=== PATIENT | female | born 1965 | race Caucasian/White ===

== ENCOUNTER 2018-05-09 11:22 | Emergency (ER) | payer BC ==
--- NOTE | 2018-05-09 11:41 | EDM.PDOC ---
ED HPI GENERAL MEDICAL PROBLEM - General Chief Complaint: Skin Complaint Stated Complaint: COLD SORE Time Seen by Provider: 05/09/18 11:31 Source of Information: Reports: Patient History Limitations: Reports: No Limitations - History of Present Illness INITIAL COMMENTS - FREE TEXT/NARRATIVE: HISTORY AND PHYSICAL: History of present illness: Patient is a 52-year-old female who presents to the emergency room with complaints of a cold sore to the upper left lip. She states she does routinely get cold sores and will get oral antivirals to help shorten the duration. She states if it is left untreated they do get very painful and large. She denies any fever, chills, chest pain, shortness of breath or cough. Denies any GI or symptoms. She has been able to eat and drink appropriately. Has no other concerns with today's visit. Review of systems: As per history of present illness and below otherwise all systems reviewed and negative. Past medical history: As per history of present illness and as reviewed below otherwise noncontributory. Surgical history: As per history of present illness and as reviewed below otherwise noncontributory. Social history: See social history for further information Family history: As per history of present illness and as reviewed below otherwise noncontributory. Physical exam: General: Well-developed and well-nourished 52-year-old female. Alert and oriented. Nontoxic appearing and in no acute distress. HEENT: Atraumatic, normocephalic, pupils equal and reactive bilaterally, negative for conjunctival pallor or scleral icterus, mucous membranes moist, TMs normal bilaterally, throat clear, neck supple, nontender, trachea midline. No drooling or trismus noted. No meningeal signs. No hot potato voice noted. Lungs: Clear to auscultation, breath sounds equal bilaterally, chest nontender. Heart: S1S2, regular rate and rhythm without overt murmur Abdomen: Soft, nondistended, nontender. Negative for masses or hepatosplenomegaly. Negative for costovertebral tenderness. Pelvis: Stable nontender. Genitourinary: Deferred. Rectal: Deferred. Skin: Small blisterlike lesion to the left upper mid lip. Otherwise skin is intact, warm, dry. No lesions or rashes noted. Extremities: Atraumatic, negative for cords or calf pain. Neurovascular unremarkable. Neuro: Awake, alert, oriented. Cranial nerves II through XII unremarkable. Cerebellum unremarkable. Motor and sensory unremarkable throughout. Exam nonfocal. Diagnostics: None Therapeutics: None Prescription: Aacyclovir Impression: Herpes simplex, oral Plan: 1. You may use [id number] Abreva for topical relief. Take your oral medication as prescribed. 2. Please follow-up with your primary caregiver in the next 1-2 days. Return to the ED as needed and as discussed. Definitive disposition and diagnosis as appropriate pending reevaluation and review of above. - Related Data Allergies Allergy/AdvReac Type Severity Reaction Status Date / Time No Known Allergies Allergy Verified 05/09/18 11:32 Home Meds: Home Meds Acyclovir 400 mg PO TID 5 Days #15 tablet 05/09/18 [Rx] Past Medical History - Past Health History Medical/Surgical History: Denies Medical/Surgical History QUALITY REP History: Reports: Endometrial Ablation Social & Family History - Family History Family Medical History: Noncontributory - Tobacco Use Smoking Status *Q: Never Smoker - Recreational Drug Use Recreational Drug Use: No ED ROS GENERAL - Review of Systems Review Of Systems: ROS reveals no pertinent complaints other than HPI. ED EXAM, SKIN/RASH Exam: See Below (See dictation) Course - Vital Signs Last Recorded V/S: Last Vital Signs Temp 96.4 F 05/09/18 11:31 Pulse 85 05/09/18 11:31 Resp 18 05/09/18 11:31 BP 142/83 H 05/09/18 11:31 Pulse Ox 97 05/09/18 11:31 Departure - Departure Time of Disposition: 11:41 Disposition: Home, Self-Care 01 Clinical Impression: Cold sore - Discharge Information Prescriptions: Acyclovir 400 mg PO TID 5 Days #15 tablet Instructions: Cold Sore, [id number] Referrals: PCP,None [Primary Care Provider] - Forms: ED Department Discharge Additional Instructions: The following information is given to patients seen in the emergency department who are being discharged to home. This information is to outline your options for follow-up care. We provide all patients seen in our emergency department with a follow-up referral. The need for follow-up, as well as the timing and circumstances, are variable depending upon the specifics of your emergency department visit. If you don't have a primary care physician on staff, we will provide you with a referral. We always advise you to contact your personal physician following an emergency department visit to inform them of the circumstance of the visit and for follow-up with them and/or the need for any referrals to a consulting specialist. The emergency department will also refer you to a specialist when appropriate. This referral assures that you have the opportunity for follow-up care with a specialist. All of these measure are taken in an effort to provide you with optimal care, which includes your follow-up. Under all circumstances we always encourage you to contact your private physician who remains a resource for coordinating your care. When calling for follow-up care, please make the office aware that this follow-up is from your recent emergency room visit. If for any reason you are refused follow-up, please contact the [facility] Emergency Department at and asked to speak to the emergency department charge nurse. [facility] [address] [place] [id number] [address] 1. You may use [id number] Abreva for topical relief. Take your oral medication as prescribed. 2. Please follow-up with your primary caregiver in the next 1-2 days. Return to the ED as needed and as discussed.
== END 2018-05-09 12:09 | disposition home or self-care (01) ==
LOC: MW.ED 11:22
DX: B00.9 Herpesviral infection, unspecified (principal)
CPT/HCPCS: 99282

== ENCOUNTER 2020-07-30 08:37 | Emergency (ER) | payer BC ==
--- NOTE | 2020-07-30 09:02 | EDM.PDOC ---
ED HPI GENERAL MEDICAL PROBLEM - General Chief Complaint: General Stated Complaint: COLD SORE Time Seen by Provider: 07/30/20 08:40 Source of Information: Reports: Patient History Limitations: Reports: No Limitations - History of Present Illness INITIAL COMMENTS - FREE TEXT/NARRATIVE: Patient is a 54-year-old female who presents today for cold sore to the left upper lip. Patient states that she normally takes acyclovir when she gets these. Symptoms started a few days ago. Patient has no other complaints shortness of breath fever chills nausea vomiting. 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: Endometrial Ablation - Infectious Disease History Infectious Disease History: Reports: Chicken Pox - Past Surgical History Female Surgical History: Reports: Endometrial Ablation Social & Family History - Family History Family Medical History: No Pertinent Family History - Tobacco Use Tobacco Use Status *Q: Former Tobacco User Used Tobacco, but Quit: Yes Month/Year Tobacco Last Used: 2004 - Caffeine Use Caffeine Use: Reports: Coffee, Soda - Recreational Drug Use Recreational Drug Use: No ED ROS GENERAL - Review of Systems Review Of Systems: See Below Constitutional: Reports: No Symptoms HEENT: Reports: Other (sore to upper left lip) Respiratory: Reports: No Symptoms Cardiovascular: Reports: No Symptoms Endocrine: Reports: No Symptoms GI/Abdominal: Reports: No Symptoms : Reports: No Symptoms Musculoskeletal: Reports: No Symptoms Skin: Reports: No Symptoms Neurological: Reports: No Symptoms Psychiatric: Reports: No Symptoms Hematologic/Lymphatic: Reports: No Symptoms Immunologic: Reports: No Symptoms ED EXAM, GENERAL - Physical Exam Exam: See Below Exam Limited By: No Limitations General Appearance: Alert, WD/WN Throat/Mouth: No: Normal Lips (small sore to left upper lip) Head: Atraumatic Respiratory/Chest: No Respiratory Distress Neurological: Alert, Oriented, Normal Cognition, Normal Gait Course - Vital Signs Last Recorded V/S: Last Vital Signs Temp 96.9 F 07/30/20 08:45 Pulse 86 07/30/20 08:45 Resp 18 04/25/21 08:45 BP 142/82 H 04/25/21 08:45 Pulse Ox 96 07/30/20 08:45 Departure - Departure Time of Disposition: 09:04 Disposition: Home, Self-Care 01 Condition: Good Clinical Impression: HSV-1 (herpes simplex virus 1) infection - Discharge Information *PRESCRIPTION DRUG MONITORING PROGRAM REVIEWED*: Not Applicable *COPY OF PRESCRIPTION DRUG MONITORING REPORT IN PATIENT KALIN: Not Applicable Prescriptions: Acyclovir 400 mg PO TID 5 Days #15 tablet Instructions: Herpetic Loretta Referrals: PCP,None [Primary Care Provider] - Forms: ED Department Discharge Additional Instructions: The following information is given to patients seen in the emergency department who are being discharged to home. This information is to outline your options for follow-up care. We provide all patients seen in our emergency department with a follow-up referral. The need for follow-up, as well as the timing and circumstances, are variable depending upon the specifics of your emergency department visit. If you don't have a primary care physician on staff, we will provide you with a referral. We always advise you to contact your personal physician following an emergency department visit to inform them of the circumstance of the visit and for follow-up with them and/or the need for any referrals to a consulting specialist. The emergency department will also refer you to a specialist when appropriate. This referral assures that you have the opportunity for follow-up care with a specialist. All of these measure are taken in an effort to provide you with optimal care, which includes your follow-up. Under all circumstances we always encourage you to contact your private physician who remains a resource for coordinating your care. When calling for follow-up care, please make the office aware that this follow-up is from your recent emergency room visit. If for any reason you are refused follow-up, please contact the [facility] Emergency Department at and asked to speak to the emergency department charge nurse. Please follow up with your primary care physician. If you do not have a primary care physician, see below: [facility] [address] [place] [id number] [facility] [address] [place] [address] You were seen today for possible early cold sore. We will prescribe you antiviral medication. If you have any increased pain spreading of the sore or other questions please feel free to call us or return to the ER. Sepsis Event Note (ED) - Evaluation Sepsis Screening Result: No Definite Risk - Focused Exam Vital Signs: Vital Signs Temp Pulse Resp BP Pulse Ox 07/30/20 08:45 96.9 F 86 18 142/82 H 96 - Assessment/Plan Plan: Patient is a 54-year-old female presents today with looks like a cold sore. Patient has been on acyclovir in the past will be start patient on acyclovir for 5 days.
== END 2020-07-30 09:13 | disposition home or self-care (01) ==
LOC: MW.ED 08:37
DX: B00.1 Herpesviral vesicular dermatitis (principal); Z87.891 Personal history of nicotine dependence
CPT/HCPCS: 99282

== ENCOUNTER 2020-11-11 21:02 | Emergency (ER) | payer BC ==
[2020-11-11 22:57] LABS: BLOOD UREA NITROGEN,BUN 14 mg/dL (7.0-18.0); CARBON DIOXIDE,CO2 21.8 mmol/L (21.0-32.0); CHLORIDE,CL 104 mmol/L (98-107); GLUCOSE RANDOM 109 mg/dL (74-106); POTASSIUM,K 3.9 mmol/L (3.5-5.1); SODIUM,NA 138 mmol/L (136-145)
[2020-11-11] MEDS ORDERED: Iopamidol 755 Mg/ML 100 ML Bottle IVPUSH ONE (23:37)
--- NOTE | 2020-11-12 01:00 | CT ---
INDICATION: Left lower quadrant pain with rectal bleeding. COMPARISON: None available TECHNIQUE: CT examination of the abdomen and pelvis was performed with the uneventful intravenous administration of 100 cc of Isovue 370 while 2.5 mm thick axial sections were obtained from the lung bases through the pubic symphysis. Oral contrast was not administered. Please note that all CT scans at this facility use dose modulation, iterative reconstruction, and/or weight-based dosing when appropriate to reduce radiation dose to as low as reasonably achievable. FINDINGS: There is moderate mucosal thickening of the descending colon extending through the superior sigmoid colon, findings of a moderate, nonspecific colitis. There is no sign of diverticulosis to suggest diverticulitis. The distal sigmoid colon and rectum are normal in appearance. In the abdomen, the liver, spleen, pancreas, and adrenals are normal in appearance. There is a 7 millimeter cyst in the interpolar right kidney of no clinical concern. The kidneys are otherwise normal in appearance. The gallbladder is normal in appearance. The abdominal aorta is normal in caliber with no sign of dilatation. There is no sign of retroperitoneal mass or adenopathy. The stomach, loops of small bowel, and right colon in the abdomen are normal in appearance. In the pelvis, the appendix is normal in appearance with no sign of inflammatory process. The loops of small bowel in the pelvis are normal in appearance. The uterus and adnexal regions are normal in appearance. The urinary bladder is normal in appearance. There is no sign of pelvic or inguinal mass or adenopathy. There is no sign of free air or free fluid in the abdomen or pelvis. The lung bases are clear. The osseous structures are normal in appearance for the patient`s age. IMPRESSION: Moderate nonspecific colitis of the descending colon and proximal sigmoid colon. CT of the abdomen shows no additional abnormality. CT of the pelvis shows no additional abnormality. Please note that all CT scans at this facility use dose modulation, iterative reconstruction, and/or weight-based dosing when appropriate to reduce radiation dose to as low as reasonably achievable. Dictated by Luis Cisse MD @ 11/12/2020 12:58:[address] Luis Cisse @ Nov 12 2020 12:58AM
--- NOTE | 2020-11-12 01:19 | EDM.PDOC ---
ED HPI GENERAL MEDICAL PROBLEM - General Chief Complaint: Abdominal Pain Stated Complaint: BLOOD IN STOOL Time Seen by Provider: 11/11/20 21:38 - History of Present Illness INITIAL COMMENTS - FREE TEXT/NARRATIVE: CHIEF COMPLAINT(S): Abdominal pain HISTORY OF PRESENT ILLNESS: This is a 54-year-old woman without any significant past medical history who comes to the emergency department with a chief complaint of abdominal pain. Patient states that starting today she started to experience abdominal pain in her lower abdominal area on the left side which she rates as 6 out of 10 and intermittent. She describes it as achy. She states that she had some pyelomode and then developed some diarrhea earlier last night and then at 2 PM today she started to know this some blood in her stool. She describes the pain as bright red blood. She described it as a splotch on the bottom of the toilet. She denies any vomiting, nausea, headache, chest pain, fever or chills. She states that she is possibly lactose intolerant but has never had bright red blood per stool. She never has had a colonoscopy. There are no aggravating or relieving factors. She has not yet tried anything for the pain or the abdominal pain or the diarrhea. She states the diarrhea has improved. REVIEW OF SYSTEMS: Constitutional: Denies fever, chills. Eyes: Denies eye pain Ears, Nose, Mouth, & Throat: Denies earache Cardiovascular: Denies chest pain Respiratory: Denies shortness of breath Gastrointestinal: Positive for lower abdominal pain, diarrhea, bloody stool. Denies melena, hematemesis, bilious emesis Genitourinary: Denies hematuria, dysuria vaginal bleeding, vaginal discharge Skin:Denies a rash MSK: Denies joint pain Neurological: Denies blurred vision Psychiatric: Denies depression PAST MEDICAL HISTORY: As per history of present illness and as reviewed below otherwise noncontributory. SURGICAL HISTORY: As per history of present illness and as reviewed below otherwise noncontributory. SOCIAL HISTORY: As per history of present illness and as reviewed below otherwise noncontributory. FAMILY HISTORY: As per history of present illness and as reviewed below otherwise noncontributory. EXAMINATION OF ORGAN SYSTEMS/BODY AREAS: Constitutional: Blood pressure is 135/76, heart rate 76, respiratory rate 17 with an oxygen saturation 98% on room air. Temperature 35.5 temporally General: Well-appearing woman who is in no acute distress Psychiatric: Appropriate mood and affect. Eyes: No scleral icterus or conjunctival erythema ENMT: Moist mucous membranes. No pharyngeal erythema Cardiovascular: Regular, rate, and rhythm. No gallops, murmurs, or rubs. Bilateral upper extremity pulses symmetric and intact. No peripheral edema. No JVD. Respiratory: Lungs clear to auscultation bilaterally. No wheezes, rales, or rh onchi. Gastrointestinal: Soft, nondistended, tenderness to palpation in the left lower quadrant. No rebound or guarding. Negative Howard's and McBurney's. Rectal examination was performed with RN senior account director in presence. There is no evidence of any external hemorrhoids. There was no pain on rectal examination. There was red blood on my glove but not stool. Guaiac was positive. Normoactive jason wel sounds Genitourinary: No suprapubic tenderness Musculoskeletal: Normal range of motion. Skin: No lesions or abrasions. Neurological: Alert, GCS 15 MEDICAL DECISION MAKING AND COURSE IN THE ED WITH INTERPRETATION/REVIEW OF DIAGNOSTIC STUDIES: This is a 54-year-old woman without any significant past medical history who comes to the emergency department with acute left lower quadrant abdominal pain associated with diarrhea and bloody bowel movement who has normal vital signs. At this time differential includes colitis, diverticulitis, colorectal mass, internal hemorrhoids. We will obtain CBC, CMP, coags. We will obtain a CT abdomen pelvis with contrast for further evaluation. The patient currently states that her pain is well controlled and does not want any pain medication therefore we will reevaluate. Laboratory analysis reveals a CBC revealing leukocytosis of 14.30 with normal hemoglobin at 15.4 and hematocrit of 43.0. Coag is within normal limits. CMP is also within normal limits. Lactic acid is 1.7. The radiological images were viewed by myself along with reading the report from the radiologist. CT abdomen and pelvis with contrast reveals moderate mucosal thickening of the descending colon extending through the superior sigmoid colon findings are suggestive of nonspecific colitis. No evidence of diverticulitis. After imaging the patient continued to remain stable in the emergency department. She did not have any episodes of diarrhea. I did discuss the results with the patient. I discussed that if she had worsening diarrhea that we would like to obtain a sample so that we can send it for infectious diarrhea. I discussed that at this time she should continue with a light diet and follow- up with her primary care physician. She is to get a colonoscopy as she is due for this. She is to return for any new or worsening symptoms. She was amenable discharge and had no further questions. DISPOSITION: The patient was discharged home in stable condition. The patient will follow up with primary care physician in 1 to 3 days CONDITION: Fair PROCEDURES: None FINAL IMPRESSION(S)/DIAGNOSES: 1. Acute rectal bleeding secondary to colitis Calvin Dietz M.D. lower abdomen Pain Score (Numeric/FACES): 6 - Related Data Allergies Allergy/AdvReac Type Severity Reaction Status Date / Time No Known Allergies Allergy Verified 11/11/20 21:37 Home Meds: Home Meds . [No Known Home Meds] 11/11/20 [History] Past Medical History - Past Health History Medical/Surgical History: Denies Medical/Surgical History HEENT History: Reports: None Cardiovascular History: Reports: None Respiratory History: Reports: Bronchitis, Recurrent Gastrointestinal History: Reports: None Genitourinary History: Reports: None ADVISORY SERVICES ASSOCIATE History: Reports: Endometrial Ablation Musculoskeletal History: Reports: None Neurological History: Reports: Other (See Below) Other Neuro History: TBI Psychiatric History: Reports: None Endocrine/Metabolic History: Reports: None Hematologic History: Reports: None Immunologic History: Reports: None Oncologic (Cancer) History: Reports: None Dermatologic History: Reports: None - Infectious Disease History Infectious Disease History: Reports: Chicken Pox - Past Surgical History Head Surgeries/Procedures: Reports: None HEENT Surgical History: Reports: None Cardiovascular Surgical History: Reports: None Respiratory Surgical History: Reports: None GI Surgical History: Reports: None Female Surgical History: Reports: Endometrial Ablation Endocrine Surgical History: Reports: None Neurological Surgical History: Reports: None Musculoskeletal Surgical History: Reports: None Oncologic Surgical History: Reports: None Dermatological Surgical History: Reports: None Social & Family History - Family History Family Medical History: No Pertinent Family History - Tobacco Use Tobacco Use Status *Q: Never Tobacco User - Caffeine Use Caffeine Use: Reports: None - Recreational Drug Use Recreational Drug Use: No ED ROS GENERAL - Review of Systems Review Of Systems: See Below ED EXAM, GENERAL - Physical Exam Exam: See Below Course - Vital Signs Last Recorded V/S: Last Vital Signs Temp 35.5 C L 11/11/20 21:38 Pulse 76 11/11/20 21:38 Resp 17 11/11/20 21:38 BP 135/76 11/11/20 21:38 Pulse Ox 98 11/11/20 21:38 - Orders/Labs/Meds Labs: Laboratory Tests 11/11/20 11/11/20 11/11/20 Range/Units 22:00 22:00 22:16 WBC 14.30 H (4.0-11.0) K/uL RBC 4.98 (4.30-5.90) M/uL Hgb 15.4 (12.0-16.0) g/dL Hct 43.4 (36.0-46.0) % MCV 87.1 (80.0-98.0) fL MCH 30.9 (27.0-32.0) pg MCHC 35.5 (31.0-37.0) g/dL RDW Std Deviation 41.2 (28.0-62.0) fl RDW Coeff of Rossy 13 (11.0-15.0) % Plt Count 334 (150-400) K/uL MPV 10.40 (7.40-12.00) fL Neut % (Auto) 80.9 H (48.0-80.0) % Lymph % (Auto) 11.1 L (16.0-40.0) % Oldham % (Auto) 7.5 (0.0-15.0) % Eos % (Auto) 0.4 (0.0-7.0) % Baso % (Auto) 0.1 (0.0-1.5) % Neut # (Auto) 11.6 H (1.4-5.7) K/uL Lymph # (Auto) 1.6 (0.6-2.4) K/uL Oldham # (Auto) 1.1 H (0.0-0.8) K/uL Eos # (Auto) 0.1 (0.0-0.7) K/uL Baso # (Auto) 0.0 (0.0-0.1) K/uL Nucleated RBC % 0.0 /100WBC Nucleated RBCs # 0 K/uL INR 1.04 Sodium 138 (136-145) mmol/L Potassium 3.9 (3.5-5.1) mmol/L Chloride 104 (98-107) mmol/L Carbon Dioxide 21.8 (21.0-32.0) mmol/L BUN 14 (7.0-18.0) mg/dL Creatinine 0.7 (0.6-1.0) mg/dL Est Cr Clr Drug Dosing 89.34 mL/min Estimated GFR (MDRD) > 60.0 ml/min Glucose 109 H (74-106) mg/dL Lactic Acid (0.4-2.0) mmol/L Calcium 10.2 H (8.5-10.1) mg/dL Magnesium 2.1 (1.8-2.4) mg/dL Total Bilirubin 0.4 (0.2-1.0) mg/dL AST 23 (15-37) IU/L ALT 26 (14-63) IU/L Alkaline Phosphatase 79 (46-116) U/L Total Protein 8.0 (6.4-8.2) g/dL Albumin 4.2 (3.4-5.0) g/dL Globulin 3.8 (2.6-4.0) g/dL Albumin/Globulin Ratio 1.1 (0.9-1.6) 11/11/20 Range/Units 22:16 WBC (4.0-11.0) K/uL RBC (4.30-5.90) M/uL Hgb (12.0-16.0) g/dL Hct (36.0-46.0) % MCV (80.0-98.0) fL MCH (27.0-32.0) pg MCHC (31.0-37.0) g/dL RDW Std Deviation (28.0-62.0) fl RDW Coeff of Rossy (11.0-15.0) % Plt Count (150-400) K/uL MPV (7.40-12.00) fL Neut % (Auto) (48.0-80.0) % Lymph % (Auto) (16.0-40.0) % Oldham % (Auto) (0.0-15.0) % Eos % (Auto) (0.0-7.0) % Baso % (Auto) (0.0-1.5) % Neut # (Auto) (1.4-5.7) K/uL Lymph # (Auto) (0.6-2.4) K/uL Oldham # (Auto) (0.0-0.8) K/uL Eos # (Auto) (0.0-0.7) K/uL Baso # (Auto) (0.0-0.1) K/uL Nucleated RBC % /100WBC Nucleated RBCs # K/uL INR Sodium (136-145) mmol/L Potassium (3.5-5.1) mmol/L Chloride (98-107) mmol/L Carbon Dioxide (21.0-32.0) mmol/L BUN (7.0-18.0) mg/dL Creatinine (0.6-1.0) mg/dL Est Cr Clr Drug Dosing mL/min Estimated GFR (MDRD) ml/min Glucose (74-106) mg/dL Lactic Acid 1.7 (0.4-2.0) mmol/L Calcium (8.5-10.1) mg/dL Magnesium (1.8-2.4) mg/dL Total Bilirubin (0.2-1.0) mg/dL AST (15-37) IU/L ALT (14-63) IU/L Alkaline Phosphatase (46-116) U/L Total Protein (6.4-8.2) g/dL Albumin (3.4-5.0) g/dL Globulin (2.6-4.0) g/dL Albumin/Globulin Ratio (0.9-1.6) Meds: Medications Discontinued Medications Generic Name Dose Route Start Last Admin Trade Name Freq PRN Reason Stop Dose Admin Iopamidol 100 ml 11/11/20 23:37 11/11/20 23:53 Iopamidol 755 Mg/Ml 100 Ml Bottle IVPUSH 11/11/20 23:38 100 ml ONETIME ONE Administration Departure - Departure Time of Disposition: 01:19 Disposition: Home, Self-Care 01 Condition: Fair Clinical Impression: Colitis - Discharge Information Instructions: Colitis Referrals: PCP,None [Primary Care Provider] - Forms: ED Department Discharge Additional Instructions: You were evaluated today on an emergent basis. At this time your labs were all normal and your blood levels were normal. At this time there was evidence of colitis on your CT. As discussed given that there is blood in your stool this could be a bacterial infection however given that you are not having a significant amount of diarrhea and it seems to have improved this will likely resolve on its own. I do recommend that you start with a bland diet and then work your way up. I would refrain from lactose-containing food products. I would like you to make an appointment with a primary care physician within 3 to 5 days and also make an appointment with a general surgeon for a colonoscopy as you are beyond the recommended age for screening. If you have any worsening symptoms I would like you to return to the emergency department. [facility] - Primary Care [address] [place] [address] [facility] [address] [place] [address] [facility] - General Surgery -> For colonoscopy [facility] [address] [place] [address], [address] [place] [address] The patient is informed of any results of their evaluation and diagnostic workup and all questions are answered. They are given discharge instructions and return precautions. The patient is stable for discharge. The patient states they understand and agree with the plan and that they will return if their symptoms get worse or if they have any new concerns. The following information is given to patients seen in the emergency department who are being discharged to home. This information is to outline your options for follow-up care. We provide all patients seen in our emergency department with a follow-up referral. The need for follow-up, as well as the timing and circumstances, are variable depending upon the specifics of your emergency department visit. If you don't have a primary care physician on staff, we will provide you with a referral. We always advise you to contact your personal physician following an emergency department visit to inform them of the circumstance of the visit and for follow-up with them and/or the need for any referrals to a consulting specialist. The emergency department will also refer you to a specialist when appropriate. This referral assures that you have the opportunity for follow-up care with a specialist. All of these measure are taken in an effort to provide you with optimal care, which includes your follow-up. Under all circumstances we always encourage you to contact your private physician who remains a resource for coordinating your care. When calling for follow-up care, please make the office aware that this follow-up is from your recent emergency room visit. If for any reason you are refused follow-up, please contact the [facility] Emergency Department at and asked to speak to the emergency department charge nurse. Sepsis Event Note (ED) - Evaluation Sepsis Screening Result: No Definite Risk
== END 2020-11-12 01:25 | disposition home or self-care (01) ==
LOC: MW.ED 21:02
DX: K52.9 Noninfective gastroenteritis and colitis, unspecified (principal); K62.5 Hemorrhage of anus and rectum
CPT/HCPCS: 36415; 74177; 80053; 83605; 83735; 85025; 85610; 99284; Q9967